=== PATIENT | female | born 1985 | race Caucasian/White ===

== ENCOUNTER 2021-06-14 08:47 | Emergency (ER) | payer SELFPAY ==
[2021-06-14 08:55] VITALS: BP 165/100
--- NOTE | 2021-06-14 09:02 | ED Headache ---
General Chief Complaint: Head/Cervical Problems Stated Complaint: HEADACHE; VOMITING Source: patient Exam Limitations: no limitations History of Present Illness Date Seen by Provider: Jun 14, 2021 Time Seen by Provider: 08:48 Initial Comments 35-year-old female with past medical history of chronic migraines coming in due to a new headache. Started last night around 8 PM, and was slow in onset. Feels like a throbbing pain to the left side of her head going across the front of it. Feels similar to her bad migraines that she gets. Denies any fever, neck stiffness, significant vision changes, or any other concerns. Began having nausea this morning associated with it which is not uncommon for her. Has not otherwise been sick or been around any sick contacts that she knows of. Did take Tylenol this morning early which took the edge off of it but is still present. She says the last time she had to go to the ER for a headache like this was over a year ago. Typically she gets migraines similar to this about monthly, but did have 1 a couple weeks ago. She is currently menstruating. Allergies and Home Medications Allergies Coded Allergies: lisinopril (Verified Allergy, Unknown, 06/14/21) cough Patient Home Medication List Home Medication List Reviewed: Yes Review of Systems Review of Systems Constitutional: No chills, No fever Eyes: Denies Blurred Vision; Photophobia Ears, Nose, Mouth, Throat: denies nose discharge, denies throat pain Respiratory: No cough, No short of breath Cardiovascular: No chest pain Gastrointestinal: No abdominal pain, No diarrhea; nausea; No vomiting Genitourinary: no symptoms reported Musculoskeletal: no symptoms reported Skin: no symptoms reported Psychiatric/Neurological: No Symptoms Reported All Other Systems Reviewed Negative Unless Noted: Yes Physical Exam Vital Signs Vital Signs - First Documented 06/14/21 08:55 Temp 36.4 Pulse 100 Resp 16 B/P (MAP) 165/100 (121) Pulse Ox 97 O2 Delivery Room Air Capillary Refill : Height, Weight, BMI Height: '" Weight: lbs. oz. kg; BMI Method: General Appearance: WD/WN, no apparent distress HEENT: PERRL/EOMI, normal ENT inspection, pharynx normal Neck: non-tender, full range of motion, supple, normal inspection Cardiovascular: regular rate, rhythm, no edema, no murmur Respiratory: chest non-tender, lungs clear, normal breath sounds, no respiratory distress, no accessory muscle use Gastrointestinal: normal bowel sounds, non tender, soft; No distended, No guarding, No rebound Back: normal inspection, no CVA tenderness, no vertebral tenderness Extremities: normal range of motion, non-tender, normal inspection, no pedal edema, no calf tenderness, normal capillary refill Psychiatric: alert, oriented x 3 Crainal Nerves: normal hearing, PERRL Coordination/Gait: normal finger to nose, normal gait Motor/Sensory: no motor deficit, no sensory deficit, no pronator drift Skin: normal color, warm/dry Lymphatic: no adenopathy Progress/Results/Core Measures Results/Orders My Orders Orders - LATOSHA JORDAN MD Prochlorperazine Injection (Compazine In (06/14/21 09:15) Diphenhydramine Injection (Benadryl Inje (06/14/21 09:15) Ketorolac Injection (Toradol Injection) (06/14/21 09:15) Vital Signs/I&O 06/14/21 08:55 Temp 36.4 Pulse 100 Resp 16 B/P (MAP) 165/100 (121) Pulse Ox 97 O2 Delivery Room Air Progress Progress Note : Progress Note 35-year-old female with above history coming in due to headache and nausea. ABCs were intact and vitals were stable on presentation. Physical exam reassuring including normal neuro exam. This fits the pattern of her typical migraines, and she has no red flags for her headache including no fever or meningismus that would be concerning for meningitis. She received IM injections of Compazine, Benadryl, Toradol with 60% of resolution of her symptoms. Then trialed an IM injection of droperidol which also helped. At that time the patient was requesting being discharged as she is feeling better. I believe she was stable for discharge at that time, and was sent home with strict return precautions. Of note, she does not really have any other infectious symptoms, but I told her if she develops any she should get tested for Covid and influenza, but we withheld that at this time. Departure Impression Primary Impression: Headache Qualified Codes: R51.9 - Headache, unspecified Disposition: 01 HOME, SELF-CARE Condition: Stable Departure-Patient Inst. Decision time for Depature: 10:25 Referrals: ALY PENALOZA APRN (PCP) Primary Care Physician [facility] (Family) Primary Care Physician Patient Instructions: Headache, Adult (DC) Add. Discharge Instructions: You were seen in the emergency department for your bad headache. We did try some injections to help with headache and nausea. The best thing you can do is go home, drink plenty of fluids, and try to sleep this off. Around 3 PM you can take 600 mg of ibuprofen again in 1000 mg of Tylenol if your headache continues. Take your Zofran at home for nausea. If this becomes really persistent and you get headaches more often, I would have your primary care doctor refer you to a neurologist as there are medications they can give you to help lessen have any headache should get. If you develop any other infectious symptoms such as fever, cough, diarrhea, or anything like that, I would call your PCP to be tested for things like influenza and/or COVID. Work/School Note: Work Release Form Date Seen in the Emergency Department: Jun 14, 2021 Return to Work: Jun 15, 2021 Restrictions: No Restrictions LATOSHA JORDAN MD Jun 14, 2021 09:02
[2021-06-14] MEDS ORDERED: diphenhydrAMINE 50 MG/ML INJ (BENADRYL) IM ONE (09:15)
[2021-06-14] MEDS ORDERED: KETOROLAC 30 MG/ML VIAL IM ONE (09:15)
[2021-06-14] MEDS ORDERED: PROCHLORPERAZINE 10 MG/2ML INJ (COMPAZINE) IM ONE (09:15)
[2021-06-14] MEDS ORDERED: DROPERIDOL 5 MG/2 ML (INAPSINE) ED ONLY! IM ONE (10:30)
== END 2021-06-14 10:30 | disposition home or self-care (01) ==
LOC: ER FS 08:50
DX: R51.9 Headache, unspecified (principal)
CPT/HCPCS: 96372; 99284

== ENCOUNTER 2023-02-23 02:55 | Emergency (ER) | payer BC ==
[~2023-02-23 02:55] MED LIST: SUCR1TAB36 PO
[2023-02-23] MEDS ORDERED: PANTOPRAZOLE INJECTION 40 MG VIAL IV STA (03:04)
[2023-02-23] MEDS ORDERED: fentaNYL INJECTION 100 MCG/2 ML VIAL IVP STA (03:04)
[2023-02-23] MEDS ORDERED: KETOROLAC INJ 15 MG/ML VIAL IVP STA (03:04)
[2023-02-23] MEDS ORDERED: METOCLOPRAMIDE INJ 10 MG/2 ML IVP STA (03:04)
[2023-02-23] MEDS ORDERED: diphenhydrAMINE INJ 50 MG/ML VIAL IVP STA (03:04)
[2023-02-23] MEDS ORDERED: NS IV 1000 ML 1,000 ML IV STA (03:04)
[2023-02-23 03:17] LABS: BASOPHILS % (AUTO) 0 % (0-10); EOSINOPHILS # (AUTO) 0.1 10^3/uL (0.0-0.3); EOSINOPHILS % (AUTO) 1 % (0-10); HEMATOCRIT 41 % (35-52); HEMOGLOBIN 13.8 g/dL (11.5-16.0); LYMPHOCYTES % (AUTO) 18 % (12-44); MEAN CORPUSCULAR HEMOGLOBIN 28 pg (25-34); MEAN CORPUSCULAR HGB CONC 34 g/dL (32-36); MEAN CORPUSCULAR VOLUME 84 fL (80-99); MEAN PLATELET VOLUME 8.9 fL (9.0-12.2); MONOCYTES # (AUTO) 0.6 10^3/uL (0.0-1.0); MONOCYTES % (AUTO) 6 % (0-12); NEUTROPHILS # (AUTO) 8.5 10^3/uL (1.8-7.8); NEUTROPHILS % (AUTO) 75 % (42-75); PLATELET COUNT 416 10^3/uL (130-400); WHITE BLOOD COUNT 11.3 10^3/uL (4.3-11.0)
--- NOTE | 2023-02-23 03:18 | ED Abdominal Pain ---
General Chief Complaint: Abdominal/GI Problems Stated Complaint: ULCER|VOMITING|PAIN Nursing Triage Note: PT AMB TO FS 05 W C/O EPIGASTRIC PAIN AND N/V SX MIDNIGHT. PT REPORTS DIARRHEA YESTERDAY, A&OX4. Source of Information: Patient, Family, Old Records Exam Limitations: Other (pain) History of Present Illness Date Seen by Provider: Feb 23, 2023 Time Seen by Provider: 02:56 Initial Comments 37-year-old female presenting with complaints of epigastric pain going to her back. She states that this started at midnight tonight. She also has been having diarrhea. Pain started after she ate chicken Demian pizza, although she was supposed to be following a bland diet until she saw the surgeon. She denies any pain with urination. She has pain in the epigastric area radiating through to her back. She had initially thought that she was having problems with her gallbladder but when she was seen on the she was told that it was more likely an ulcer. She had called the clinic to get a referral to the surgeon for a scope but states they have not called her back. She has been taking Carafate 4 times a day but still was having pain. She had been vomiting this evening as well and taken Zofran at home but it had not helped.. Timing/Duration: 1-3 Hours Severity/Quality: Severe, Sharp Location: Epigastric Radiation: Back Activities at Onset: Sleeping Modifying Factors: Worsens With Eating, Worsens With Lying down, Worsens With Movement, Worsens With Palpation Associated Symptoms: Back Pain (Epigastric pain radiates to her back); No Chest Pain; Diaphoresis; No Fever/Chills, No Fatigue, No Headache; Heartburn, Nausea/Vomiting; No Swelling/Mass in Abdomen, No Syncope, No Weakness Allergies and Home Medications Allergies Coded Allergies: lisinopril (Verified Allergy, Unknown, 06/14/21) cough Patient Home Medication List Home Medication List Reviewed: Yes Hydrocodone/Acetaminophen (Hydrocodone-Acetamin 5-325 mg) 5 Mg-325 Mg Tablet, 1 TAB PO Q4H PRN for PAIN SEVERE Prescribed by: DONNA PAREDES on 02/23/23 0551 Ondansetron (Ondansetron Odt) 4 Mg Tab.rapdis, 4 MG PO Q6H PRN for NAUSEA/VOMITING Prescribed by: DONNA PAREDES on 02/23/23 0549 Sucralfate (Carafate) 1 Gram Tablet, 1 GM PO ACHS Prescribed by: ROBERTO CARLOS MALDONADO MD on 02/18/236 Review of Systems Review of Systems Constitutional: No chills, No fever; other (Patient appears anxious and is constantly moaning and crying out dramatically at times) EENTM: No Symptoms Reported Respiratory: No Symptoms Reported Cardiovascular: Denies Chest Pain Gastrointestinal: See HPI Genitourinary: No Symptoms Reported Musculoskeletal: see HPI Skin: No rash Psychiatric/Neurological: Anxiety, Emotional Problems Past Otwdnze-Tqbimi-Jbcptj Hx Patient Social History Tobacco Use?: Yes Tobacco type used: Cigarettes Smoking Status: Current Everyday Smoker Use of E-Cig and/or Vaping dev: No Substance use?: No Alcohol Use?: No Immunizations Up To Date First/Initial COVID19 Vaccinat: Not currenlty vaccinated Second COVID19 Vaccination [place]: Not currenlty vaccinated Third COVID19 Vaccination Date: Not currenlty vaccinated Past Medical History Surgery/Hospitalization HX: HTN; ; Migraines, ULCER Surgeries: Yes Section Cardiac: Yes Hypertension Physical Exam Vital Signs Vital Signs - First Documented 02/23/23 02:55 Temp 36.9 Pulse 85 Resp 22 B/P (MAP) 107/ Pulse Ox 95 O2 Delivery Room Air O2 Flow Rate 195.00 Capillary Refill : Less Than 3 Seconds Height/Weight/BMI Height: '" Weight: lbs. oz. kg; 42.00 BMI Method: General Appearance: severe distress (constantly moaning and crying out dramatically at times), obese Respiratory: chest non-tender, lungs clear, normal breath sounds, no respiratory distress, no accessory muscle use Cardiovascular: normal peripheral pulses, regular rate, rhythm Gastrointestinal: normal bowel sounds, soft, no pulsatile mass, guarding; No rebound; tenderness (epigastric) Rectal: deferred Extremities: normal range of motion, non-tender, normal capillary refill Neurologic/Psychiatric: alert, oriented x 3 Skin: normal color, warm/dry Progress/Results/Core Measures Results/Orders Lab Results Laboratory Tests Test 02/23/23 03:05 02/23/23 04:45 Range/Units White Blood Count 11.3 H 4.3-11.0 10^3/uL Red Blood Count 4.91 3.80-5.11 10^6/uL Hemoglobin 13.8 11.5-16.0 g/dL Hematocrit 41 35-52 % Mean Corpuscular Volume 84 80-99 fL Mean Corpuscular Hemoglobin 28 25-34 pg Mean Corpuscular Hemoglobin Concent 34 32-36 g/dL Red Cell Distribution Width 12.9 10.0-14.5 % Platelet Count 416 H 130-400 10^3/uL Mean Platelet Volume 8.9 L 9.0-12.2 fL Immature Granulocyte % (Auto) 1 % Neutrophils (%) (Auto) 75 42-75 % Lymphocytes (%) (Auto) 18 12-44 % Monocytes (%) (Auto) 6 0-12 % Eosinophils (%) (Auto) 1 0-10 % Basophils (%) (Auto) 0 0-10 % Neutrophils # (Auto) 8.5 H 1.8-7.8 10^3/uL Lymphocytes # (Auto) 2.0 1.0-4.0 10^3/uL Monocytes # (Auto) 0.6 0.0-1.0 10^3/uL Eosinophils # (Auto) 0.1 0.0-0.3 10^3/uL Basophils # (Auto) 0.0 0.0-0.1 10^3/uL Immature Granulocyte # (Auto) 0.1 0.0-0.1 10^3/uL Percent Immature Platelet Fraction 1.2 0.0-7.6 % Prothrombin Time 12.5 12.2-14.7 SEC INR Comment 0.9 0.8-1.4 Activated Partial Thromboplast Time 32 24-35 SEC Sodium Level 138 135-145 MMOL/L Potassium Level 3.4 L 3.6-5.0 MMOL/L Chloride Level 100 98-107 MMOL/L Carbon Dioxide Level 23 21-32 MMOL/L Anion Gap 15 H 5-14 MMOL/L Blood Urea Nitrogen 13 7-18 MG/DL Creatinine 0.67 0.60-1.30 MG/DL Estimat Glomerular Filtration Rate 115 BUN/Creatinine Ratio 19 Glucose Level 171 H 70-105 MG/DL Calcium Level 9.2 8.5-10.1 MG/DL Corrected Calcium 8.8 8.5-10.1 MG/DL Magnesium Level 2.1 1.6-2.4 MG/DL Total Bilirubin 0.3 0.1-1.0 MG/DL Aspartate Amino Transf (AST/SGOT) 13 5-34 U/L Alanine Aminotransferase (ALT/SGPT) 16 0-55 U/L Alkaline Phosphatase 150 H 40-136 U/L Troponin I < 0.30 <0.30 NG/ML Pro-B-Type Natriuretic Peptide 49.6 <125.0 PG/ML Total Protein 8.2 6.4-8.2 GM/DL Albumin 4.5 3.2-4.5 GM/DL Lipase 25 8-78 U/L Serum Alcohol < 10 <10 MG/DL Urine Color YELLOW Urine Clarity CLEAR Urine pH 7.0 5-9 Urine Specific Barry 1.010 L 1.016-1.022 Urine Protein NEGATIVE NEGATIVE Urine Glucose (UA) TRACE H NEGATIVE Urine Ketones NEGATIVE NEGATIVE Urine Nitrite NEGATIVE NEGATIVE Urine Bilirubin NEGATIVE NEGATIVE Urine Urobilinogen 0.2 < = 1.0 MG/DL Urine Leukocyte Esterase NEGATIVE NEGATIVE Urine RBC (Auto) TRACE-I H NEGATIVE Urine RBC 0-2 /HPF Urine WBC RARE /HPF Urine Squamous Epithelial Cells RARE /HPF Urine Crystals NONE /LPF Urine Bacteria NEGATIVE /HPF Urine Casts NONE /LPF Urine Mucus NEGATIVE /LPF Urine Culture Indicated NO Urine Opiates Screen POSITIVE H NEGATIVE Urine Oxycodone Screen NEGATIVE NEGATIVE Urine Methadone Screen NEGATIVE NEGATIVE Urine Propoxyphene Screen NEGATIVE NEGATIVE Urine Barbiturates Screen NEGATIVE NEGATIVE Ur Tricyclic Antidepressants Screen NEGATIVE NEGATIVE Urine Phencyclidine Screen NEGATIVE NEGATIVE Urine Amphetamines Screen NEGATIVE NEGATIVE Urine Methamphetamines Screen NEGATIVE NEGATIVE Urine Benzodiazepines Screen NEGATIVE NEGATIVE Urine Cocaine Screen NEGATIVE NEGATIVE Urine Cannabinoids Screen NEGATIVE NEGATIVE My Orders Orders - DONNA PAREDES MD Ekg Tracing (02/23/23 03:00) Cbc And Automated Diff (02/23/23 03:04) Magnesium (02/23/23 03:04) Chest 1 View Ap/Pa Only (02/23/23 03:04) Comprehensive Metabolic Panel (02/23/23 03:04) Protime With Inr (02/23/23 03:04) Partial Thromboplastin Time (02/23/23 03:04) O2 (02/23/23 03:04) Monitor-Rhythm Ecg Trace Only (02/23/23 03:04) Ed Iv/Invasive Line Start (02/23/23 03:04) Lipase (02/23/23 03:04) Troponin I Fs (02/23/23 03:04) Probnp Fs (02/23/23 03:04) Ua Culture If Indicated (02/23/23 03:04) Ct Abdomen/Pelvis W (02/23/23 03:04) Ns Iv 1000 Ml (Ns Iv 1000 Ml) (02/23/23 03:04) Ketorolac Injection (Ketorolac Injection (02/23/23 03:04) Fentanyl Injection (Fentanyl Injection (02/23/23 03:04) Pantoprazole Injection (Pantoprazole Inj (02/23/23 03:04) Metoclopramide Injection (Metoclopramide (02/23/23 03:04) Diphenhydramine Injection (Diphenhydram (02/23/23 03:04) Drug Screen Stat (Urine) (02/23/23 03:04) Alcohol (02/23/23 03:04) Iohexol Injection (Omnipaque 350 Mg/Ml 1 (02/23/23 03:30) Received Contrast (Hold Metformin- Contr (02/23/23 03:30) Ns (Ivpb) 100 Ml (Sodium Chloride 0.9% 1 (02/23/23 03:30) Medications Given in ED Current Medications Medications Dose Ordered Sig/Matthew Route Start Time Stop Time Status Last Admin Dose Admin Iohexol 100 ml ONCE ONCE IV 02/23/23 03:30 02/23/23 03:31 DC 02/23/23 03:37 100 ML Sodium Chloride 100 ml ONCE ONCE IV 02/23/23 03:30 02/23/23 03:31 DC 02/23/23 03:37 100 ML Vital Signs/I&O 02/23/23 02:55 Temp 36.9 Pulse 85 Resp 22 B/P (MAP) 107/ Pulse Ox 95 O2 Delivery Room Air O2 Flow Rate 195.00 Progress Progress Note #1: Progress Note Differential diagnosis peptic ulcer disease, pancreatitis, cholecystitis, gastritis, diverticulitis, colitis, myocardial infarction, acute coronary syndrome. Establish peripheral IV access and send labs for complete blood count, comprehensive metabolic profile, lipase, ETOH, troponin, proBNP, coagulation factors, magnesium, UA, Urine drug screen. She had negative bedside test on 02/18/2023 so this was not repeated tonight. Electrocardiogram to evaluate her rate, rhythm and look for ischemia. Cardiac media monitor and my initial interpretation is that she is in a sinus rhythm with rate in the 70s. CT scan of abdomen/pelvis with IV contrast to evaluate for pathology to be causing her symptoms. 1 view chest xray with her having epigastric pain and hypertension. Administer normal saline 1 L IVF bolus for hydration, Toradol 15 mg IV for pain, Fentanyl 50 mcg IV for pain, Pantoprazole 40 mg IV for gastritis, metoclopramide 10 mg IV for nausea/vomiting, diphenhydramine 25 mg IV for nausea and anxiety. If her blood pressure is not coming down with these medicines then will add on hydralazine to try and help lower her blood pressure as well. Progress Note #2: Time: 03:54 Progress Note Complete blood count shows white blood cells at upper limit of normal at 11.3. Comprehensive metabolic profile shows elevated glucose to 171. Troponin is negative at less than 0.3. She does not have an elevated proBNP. Her lipase is normal at 25. Her liver function tests are not elevated to indicate obstruction or blockage. Alcohol level is less than 10. Coagulation factors are not showing coagulopathy or elevation. Mild personal interpretation I reviewed the CT scan of the abdomen pelvis with IV contrast shows large distended gallbladder with gallbladder wall thickening and a large gallstone sitting at the biliary duct but not causing obstruction. There is no pericholecystic fluid. After all medications patient was resting in the room and was at least no longer moaning a nd crying out. Her blood pressure did come down some with medications for pain. My personal interpretation and review of her 1 view chest x-ray shows some cardiomegaly and pulmonary vascular congestion without infiltrate. 0530 Patient was able to rest comfortably and reports pain is down to 1 out of 10 if that. She was advised of current findings and that I saw a large gallstone in the gallbladder with gallbladder wall thickening but no infection or obstruction. Awaiting radiology report. She was able to provide a urine specimen and it did not show infection and she had only opiates in her drug screen from the Fentanyl she was given here in the ED. Progress Note #3: Time: 06:45 Progress Note The radiologist read the CT report as showing gallbladder wall thickening and stone but no obstruction and no pericholecystic fluid. Patient updated and counseled on follow up and return precautions. Have her call surgeon today to schedule follow up and likely have gallbladder removed. Counseled on return precautions if having worsening symptoms. Script for Hydrocodone and Ondansetron to pharmacy. Initial ECG Impression Date: Feb 23, 2023 Initial ECG Impression Time: 03:07 Initial ECG Rate: 73 Initial ECG Rhythm: Normal Sinus Initial ECG Comparisson: Unchanged (02/18/2023) Comment Based on my initial interpretation and review her electrocardiogram shows a sinus rhythm with a heart rate of 73 bpm. [place] interval 169 milliseconds. Incomplete right bundle branch block. No acute ST elevation. QT interval 393 ms with a QTc interval 419 ms. Possible septal myocardial infarction of an undetermined age. Overall appears similar to the tracing from February 18, 2023. Diagnostic Imaging Diagonstic Imaging: CT Plain Films/CT/US/NM/MRI: abdomen, pelvis Comments NAME: JAIDEN SR [facility] REC#: [id number] PT STATUS: REG ER : 1985 PHYSICIAN: DONNA PAREDES MD ADMIT DATE: 02/23/23/ER FS Draft Date of Exam:02/23/23 CT ABDOMEN/PELVIS W PROCEDURE: CT abdomen and pelvis with contrast. TECHNIQUE: Multiple contiguous axial images were obtained through the abdomen and pelvis after administration of intravenous contrast. Auto Exposure Controls were utilized during the CT exam to meet ALARA standards for radiation dose reduction. All CT scans use one or more of the following dose optimizing techniques: automated exposure control, MA and/or KvP adjustment based on patient size and exam type or iterative reconstruction. INDICATION: Epigastric pain, nausea, vomiting, diarrhea FINDINGS: The gallbladder is distended measuring about 12 cm long with 4 cm width, its wall appears thickened and there is a calculus within the gallbladder at the level of the neck, that stone measuring 19 mm and the appearance is suspicious for acute cholecystitis, correlate clinically. There is, however, no bile duct dilatation and no radiodense choledocholithiasis. Unobstructed kidneys normal. Right adrenal nodule measures 1.8 x 1.2 cm, the left adrenal negative. Spleen and pancreas normal. The aorta is nonaneurysmal. There is no small or large bowel obstruction. There is a normal well visualized appendix. There is infraumbilical rectus diastases. No acute-appearing abdominal wall pathology. The uterus, adnexa and urinary bladder appeared normal. No ascites. IMPRESSION: 1. Thickened, stone containing, mildly distended gallbladder is suspicious for cholecystitis without radiodense choledocholithiasis or bile duct dilatation. 2. No other acute-appearing abnormality found. Dictated on workstation # [id number] Dict: 02/23/2338 Trans: 02/23/2344 CVB [id number] Interpreted by: DARLENE ALEJANDRA Electronically signed by: Reviewed: Reviewed by Me Diagonstic Imaging: Xray Plain Films/CT/US/NM/MRI: chest Comments [facility] [place] [place] NAME: JAIDEN SR [facility] REC#: [id number] PT STATUS: REG ER : 1985 PHYSICIAN: DONNA PAREDES MD ADMIT DATE: 02/23/23/ER FS Draft Date of Exam:02/23/23 CHEST 1 VIEW AP/PA ONLY INDICATION: Shortness of breath and epigastric pain. No priors. FINDINGS: Upright frontal chest is clear. No infiltrate, effusion, pneumothorax or edema. No free air beneath the diaphragms. IMPRESSION: No acute appearing abnormality. Dictated on workstation # [id number] Dict: 02/23/2333 Trans: 02/23/2347 HOA [id number] Interpreted by: DARLENE ALEJANDRA Electronically signed by: Reviewed: Reviewed by Me Departure Impression Primary Impression: Epigastric abdominal pain Additional Impressions: Nausea vomiting and diarrhea Hypertension, uncontrolled Cholelithiasis Qualified Codes: K80.70 - Calculus of gallbladder and bile duct without cholecystitis without obstruction Gallbladder attack Disposition: 01 HOME, SELF-CARE Condition: Improved Departure-Patient Inst. Decision time for Depature: 06:40 Referrals: JUDY HUNTER APRN (PCP) Primary Care Physician [facility] (Family) Primary Care Physician MARY HOLDEN TAKAAKI MD Patient Instructions: Gallstones ED, High Blood Pressure ED, Nausea and Vomiting, Adult ED, Gallbladder Diet, Ulcer and Gastritis Diet Add. Discharge Instructions: Follow a strict low-fat bland diet to help prevent further gallbladder attacks. Follow-up with the surgeon to discuss treatment options for your gallbladder and the gallstones. If you have recurrent pain that is severe you can take the hydrocodone with acetaminophen. This is a narcotic so can cause constipation as well as nausea. Try to take it with a little bit of food. You have the dissolving Zofran tablets to help keep the nausea under control. If you have worsening pain despite the medications, fever over 101, uncontrolled nausea and vomiting despite the medicine then you need to be seen again right away. Otherwise following up with the surgeon so they can discuss possible removal of your gallbladder. All discharge instructions reviewed with patient and/or family. Voiced understanding. Scripts Ondansetron (Ondansetron Odt) 4 Mg Tab.rapdis 4 MG PO Q6H PRN for NAUSEA/VOMITING for 5 Days, #20 TAB 0 Refills Prov: DONNA PAREDES MD 02/23/23 Hydrocodone/Acetaminophen (Hydrocodone-Acetamin 5-325 mg) 5 Mg-325 Mg Tablet 1 TAB PO Q4H PRN for PAIN SEVERE for 3 Days, #18 TAB 0 Refills Prov: DONNA PAREDES MD 02/23/23 DONNA PAREDES MD Feb 23, 2023 03:18
[2023-02-23] MEDS ORDERED: IOHEXOL 350 MG/ML 100 ML (OMNIPAQUE 350) VIAL IV ONE (03:30)
[2023-02-23] MEDS ORDERED: NS 100 ML (IVPB) BAG IV ONE (03:30)
[2023-02-23] MEDS ORDERED: HOLD METFORMIN - RECEIVED CONTRAST 20 ML VIAL IV SCH (03:30)
[2023-02-23 03:37] LABS: INR 0.9 (0.8-1.4); PROTHROMBIN TIME PATIENT 12.5 SEC (12.2-14.7)
[2023-02-23 03:52] LABS: ALANINE AMINOTRANSFERASE 16 U/L (0-55); ALKALINE PHOSPHATASE 150 U/L (40-136); BILIRUBIN,TOTAL 0.3 MG/DL (0.1-1.0); BUN/CREATININE RATIO 19; CALCIUM 9.2 MG/DL (8.5-10.1); CARBON DIOXIDE 23 MMOL/L (21-32); CHLORIDE 100 MMOL/L (98-107); CREATININE SERUM 0.67 MG/DL (0.60-1.30); GFR ESTIMATED 115; GLUCOSE 171 MG/DL (70-105); MAGNESIUM 2.1 MG/DL (1.6-2.4); POTASSIUM 3.4 MMOL/L (3.6-5.0); SODIUM 138 MMOL/L (135-145)
[2023-02-23 03:53] LABS: ALBUMIN 4.5 GM/DL (3.2-4.5); LIPASE 25 U/L (8-78); TOTAL PROTEIN 8.2 GM/DL (6.4-8.2)
[2023-02-23 04:52] LABS: BILIRUBIN,URINE NEGATIVE (NEGATIVE); CLARITY,URINE CLEAR; COLOR,URINE YELLOW; GLUCOSE, URINE (UA) TRACE (NEGATIVE); KETONES,URINE NEGATIVE (NEGATIVE); LEUKOCYTE ESTERASE ,URINE NEGATIVE (NEGATIVE); NITRITE,URINE NEGATIVE (NEGATIVE); PROTEIN,URINE NEGATIVE (NEGATIVE)
[2023-02-23 05:05] LABS: BACTERIA,URINE NEGATIVE /HPF; RBC,URINE 0-2 /HPF; WBC,URINE RARE /HPF
[2023-02-23 05:06] LABS: SQUAMOUS EPITHELIAL CELL,UR RARE /HPF
[2023-02-23 05:07] LABS: AMPHETAMINE SCREEN, URINE NEGATIVE (NEGATIVE); BARBITURATE SCREEN URINE NEGATIVE (NEGATIVE); CANNABINOID SCREEN, URINE NEGATIVE (NEGATIVE); COCAINE SCREEN URINE NEGATIVE (NEGATIVE); METHADONE STAT NEGATIVE (NEGATIVE); OPIATE SCREEN URINE POSITIVE (NEGATIVE); OXYCODONE STAT NEGATIVE (NEGATIVE); PROPOXYPHENE STAT NEGATIVE (NEGATIVE); TRICYCLIC ANTIDEPRESSANTS SCRE NEGATIVE (NEGATIVE)
--- NOTE | 2023-02-23 05:48 | Diagnostic Imaging Report ---
INDICATION: Shortness of breath and epigastric pain. No priors. FINDINGS: Upright frontal chest is clear. No infiltrate, effusion, pneumothorax or edema. No free air beneath the diaphragms. IMPRESSION: No acute appearing abnormality. Dictated by: Dictated on workstation # [id number]
[2023-02-23] MEDS ORDERED: ACHD5005 PO ×2 (05:49→16:30)
[2023-02-23] MEDS ORDERED: ONDA4TAB11 PO (05:49)
--- NOTE | 2023-02-23 06:45 | Diagnostic Imaging Report ---
PROCEDURE: CT abdomen and pelvis with contrast. TECHNIQUE: Multiple contiguous axial images were obtained through the abdomen and pelvis after administration of intravenous contrast. Auto Exposure Controls were utilized during the CT exam to meet ALARA standards for radiation dose reduction. All CT scans use one or more of the following dose optimizing techniques: automated exposure control, MA and/or KvP adjustment based on patient size and exam type or iterative reconstruction. INDICATION: Epigastric pain, nausea, vomiting, diarrhea FINDINGS: The gallbladder is distended measuring about 12 cm long with 4 cm width, its wall appears thickened and there is a calculus within the gallbladder at the level of the neck, that stone measuring 19 mm and the appearance is suspicious for acute cholecystitis, correlate clinically. There is, however, no bile duct dilatation and no radiodense choledocholithiasis. Unobstructed kidneys normal. Right adrenal nodule measures 1.8 x 1.2 cm, the left adrenal negative. Spleen and pancreas normal. The aorta is nonaneurysmal. There is no small or large bowel obstruction. There is a normal well visualized appendix. There is infraumbilical rectus diastases. No acute-appearing abdominal wall pathology. The uterus, adnexa and urinary bladder appeared normal. No ascites. IMPRESSION: 1. Thickened, stone containing, mildly distended gallbladder is suspicious for cholecystitis without radiodense choledocholithiasis or bile duct dilatation. 2. No other acute-appearing abnormality found. Dictated by: Dictated on workstation # [id number]
[2023-02-23 06:46] VITALS: BP 166/96
[2023-02-23] MEDS ORDERED: METO200T48 PO (14:05)
[2023-02-23] MEDS ORDERED: SERT-412 PO (14:05)
[2023-02-23] MEDS ORDERED: CLN.1T PO (14:05)
== END 2023-02-23 06:46 | disposition home or self-care (01) ==
LOC: EDUNIT# 02:55 → ER FS 02:56
DX: K80.20 Calculus of gallbladder without cholecystitis without obstruction (principal); K82.9 Disease of gallbladder, unspecified; I10 Essential (primary) hypertension; E66.9 Obesity, unspecified; F17.210 Nicotine dependence, cigarettes, uncomplicated; Z68.41 Body mass index [BMI] 40.0-44.9, adult; Z28.310 Unvaccinated for COVID-19
CPT/HCPCS: 36415; 71045; 74177; 80053; 80306; 81000; 83690; 83735; 83880; 84484; 85025; 85610; 85730; 93005; 93041; 99284; G0480; 80320; Q9967

== ENCOUNTER 2023-02-23 10:13 | Emergency (ER) | payer BC ==
[~2023-02-23 10:13] MED LIST changes: +ACHD5005 PO; +ONDA4TAB11 PO
[2023-02-23] MEDS ORDERED: CLN.1T PO (14:05)
[2023-02-23] MEDS ORDERED: METO200T48 PO (14:05)
[2023-02-23] MEDS ORDERED: SERT-412 PO (14:05)
[2023-02-23] MEDS ORDERED: ACHD5005 PO (16:30)
== END 2023-02-23 10:31 | disposition left against medical advice (07) ==
LOC: EDUNIT# 10:13 → ER FS 10:16
DX: R11.10 Vomiting, unspecified (principal)

== ENCOUNTER 2023-02-23 11:02 | Day surgery (SDC) | payer BC ==
[2023-02-23] VITALS (9 sets, daily range): BP systolic 110–207; BP diastolic 72–128
[~2023-02-23] VITALS: Ht 157.5 cm; Wt 104.3 kg
[2023-02-23] MEDS ORDERED: NS IV 1000 ML 1,000 ML IV STA ×2 (11:14→12:42)
[2023-02-23] MEDS ORDERED: fentaNYL INJECTION 100 MCG/2 ML VIAL IVP ONE ×2 (11:15→14:15)
--- NOTE | 2023-02-23 11:20 | ED Abdominal Pain ---
General Stated Complaint: GALL BLADDER Source of Information: Patient Exam Limitations: No Limitations History of Present Illness Date Seen by Provider: Feb 23, 2023 Time Seen by Provider: 11:15 Initial Comments Patient is a 37-year-old female presents ED with epigastric abdominal pain. Pain is described as sharp radiates to her back. Rates pain 10 out of 10. Pain started this past Monday and she was seen in the ER. There was concern for gallbladder disease versus ulcer versus GERD. She increase her omeprazole and has been taking Carafate. She was seen at [facility] for similar type pain today because the pain has increased. Pain worse with eating. She has been vomiting since last night. She denies of any chest pain or shortness of breath. She states the pain is not getting any better with oral hydrocodone. It was recommended come to ED by her primary care physician for further evaluation. Patient did have a positive result on her CT abdomen pelvis with thickening of the gallbladder but did not note any pericholecystic fluid. Stone was noted. No evidence of choledocholithiasis. She had reassuring lab work. Patient denies chest pain, shortness of breath, headache, dizziness, visual changes, vom iting, diarrhea. Allergies and Home Medications Allergies Coded Allergies: lisinopril (Verified Allergy, Unknown, 06/14/21) cough Patient Home Medication List Home Medication List Reviewed: Yes Hydrocodone/Acetaminophen (Hydrocodone-Acetamin 5-325 mg) 5 Mg-325 Mg Tablet, 1 TAB PO Q4H PRN for PAIN SEVERE Prescribed by: DONNA PAREDES on 02/23/23 0551 Ondansetron (Ondansetron Odt) 4 Mg Tab.rapdis, 4 MG PO Q6H PRN for NAUSEA/VOMITING Prescribed by: DONNA PAREDES on 02/23/23 0549 Sucralfate (Carafate) 1 Gram Tablet, 1 GM PO ACHS Prescribed by: ROBERTO CARLOS MALDONADO MD on 02/18/232224 Review of Systems Review of Systems Constitutional: No chills, No diaphoresis EENTM: No Double Vision, No Eye Pain Respiratory: Denies Cough, Denies Orthopnea Cardiovascular: Denies Chest Pain Gastrointestinal: Abdominal Pain; Denies Diarrhea; Nausea, Vomiting Genitourinary: Denies Burning, Denies Discharge Musculoskeletal: No back pain, No joint pain Skin: No change in color, No change in hair/nails Psychiatric/Neurological: Denies Anxiety, Denies Depressed All Other Systems Reviewed Negative Unless Noted: Yes Past Elvmmtq-Jmcacs-Nxisal Hx Immunizations Up To Date First/Initial COVID19 Vaccinat: Not currenlty vaccinated Second COVID19 Vaccination [place]: Not currenlty vaccinated Third COVID19 Vaccination Date: Not currenlty vaccinated Past Medical History Surgery/Hospitalization HX: HTN; ; Migraines, ULCER Surgeries: Yes Section Cardiac: Yes Hypertension Physical Exam Vital Signs Vital Signs - First Documented 02/23/23 11:12 Temp 36.5 Pulse 90 Resp 19 B/P (MAP) 208/145 (166) O2 Delivery Room Air Capillary Refill : Height/Weight/BMI Height: '" Weight: lbs. oz. kg; 42.00 BMI Method: General Appearance: WD/WN, no apparent distress HEENT: PERRL/EOMI, normal ENT inspection, TMs normal, pharynx normal Neck: non-tender, full range of motion, supple Respiratory: chest non-tender, lungs clear, normal breath sounds, no respiratory distress, no accessory muscle use Cardiovascular: regular rate, rhythm, no edema, no gallop Gastrointestinal: normal bowel sounds, soft, no organomegaly, tenderness (epiGastric tenderness, right upper quadrant tenderness) Extremities: normal range of motion, non-tender, normal inspection, no calf tenderness Back: normal inspection, no CVA tenderness 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, no motor/sensory deficits, alert, normal mood/affect, oriented x 3 Progress/Results/Core Measures Results/Orders Lab Results Laboratory Tests Test 02/23/23 11:26 Range/Units White Blood Count 14.8 H 4.3-11.0 10^3/uL Red Blood Count 5.30 H 3.80-5.11 10^6/uL Hemoglobin 14.9 11.5-16.0 g/dL Hematocrit 44 35-52 % Mean Corpuscular Volume 84 80-99 fL Mean Corpuscular Hemoglobin 28 25-34 pg Mean Corpuscular Hemoglobin Concent 34 32-36 g/dL Red Cell Distribution Width 12.9 10.0-14.5 % Platelet Count 409 H 130-400 10^3/uL Mean Platelet Volume 8.9 L 9.0-12.2 fL Immature Granulocyte % (Auto) 1 % Neutrophils (%) (Auto) 85 H 42-75 % Lymphocytes (%) (Auto) 10 L 12-44 % Monocytes (%) (Auto) 5 0-12 % Eosinophils (%) (Auto) 0 0-10 % Basophils (%) (Auto) 0 0-10 % Neutrophils # (Auto) 12.5 H 1.8-7.8 10^3/uL Lymphocytes # (Auto) 1.5 1.0-4.0 10^3/uL Monocytes # (Auto) 0.7 0.0-1.0 10^3/uL Eosinophils # (Auto) 0.0 0.0-0.3 10^3/uL Basophils # (Auto) 0.0 0.0-0.1 10^3/uL Immature Granulocyte # (Auto) 0.1 0.0-0.1 10^3/uL Neutrophils % (Manual) 0 % Lymphocytes % (Manual) 11 % Monocytes % (Manual) 10 % Eosinophils % (Manual) 0 % Basophils % (Manual) 0 % Band Neutrophils 79 % Blood Morphology Comment NORMAL Sodium Level 137 135-145 MMOL/L Potassium Level 3.5 L 3.6-5.0 MMOL/L Chloride Level 102 98-107 MMOL/L Carbon Dioxide Level 21 21-32 MMOL/L Anion Gap 14 5-14 MMOL/L Blood Urea Nitrogen 8 7-18 MG/DL Creatinine 0.72 0.60-1.30 MG/DL Estimat Glomerular Filtration Rate 110 BUN/Creatinine Ratio 11 Glucose Level 142 H 70-105 MG/DL Calcium Level 9.3 8.5-10.1 MG/DL Corrected Calcium 8.5-10.1 MG/DL Total Bilirubin 0.5 0.1-1.0 MG/DL Aspartate Amino Transf (AST/SGOT) 17 5-34 U/L Alanine Aminotransferase (ALT/SGPT) 22 0-55 U/L Alkaline Phosphatase 146 H 40-136 U/L Total Protein 8.6 H 6.4-8.2 GM/DL Albumin 4.7 H 3.2-4.5 GM/DL Lipase 9 8-78 U/L Serum Test, Qualitative NEGATIVE NEGATIVE My Orders Orders - LATOSHA MOSS Cbc And Automated Diff (02/23/23 11:06) Comprehensive Metabolic Panel (02/23/23 11:06) Lipase (02/23/23 11:06) Iv/Invasive Line Insertion .IV INSERT (02/23/23 11:06) Hcg,Qualitative Serum (02/23/23 11:06) Fentanyl Injection (Fentanyl Injection (02/23/23 11:15) Ns Iv 1000 Ml (Ns Iv 1000 Ml) (02/23/23 11:14) Manual Differential (02/23/23 11:26) Morphine Injection (Morphine Injection (02/23/23 12:15) Hydralazine Injection (Hydralazine Injec (02/23/23 12:45) Ns Iv 1000 Ml (Ns Iv 1000 Ml) (02/23/23 12:42) Morphine Injection (Morphine Injection (02/23/23 12:45) Ns Iv 1000 Ml (Ns Iv 1000 Ml) (02/23/23 12:45) Medications Given in ED Current Medications Medications Dose Ordered Sig/Matthew Route Start Time Stop Time Status Last Admin Dose Admin Fentanyl Citrate 50 mcg ONCE ONCE IVP 02/23/23 11:15 02/23/23 11:16 DC 02/23/23 11:32 50 MCG Hydralazine HCl 10 mg ONCE ONCE IV 02/23/23 12:45 02/23/23 12:46 DC 02/23/23 12:47 10 MG Morphine Sulfate 4 mg ONCE ONCE IVP 02/23/23 12:15 02/23/23 12:16 DC 02/23/23 12:15 4 MG Morphine Sulfate 4 mg STK-MED ONCE .ROUTE 02/23/23 12:45 02/23/23 12:47 DC 02/23/23 12:48 4 MG Vital Signs/I&O 02/23/23 11:12 Temp 36.5 Pulse 90 Resp 19 B/P (MAP) 208/145 (166) O2 Delivery Room Air Departure Communication (PCP) Patient is a 37-year-old female presents ED with epigastric right upper quad abdominal pain since this Monday. Vomiting today. Was seen at [facility] earlier this morning had a CT abdomen pelvis that noted thickening stone containing mild distended gallbladder suspicious for cholecystitis without radiodense choledocholithiasis or bile duct dilation. No improvement with hydrocodone at home. Patient last ate was 7:00 last night. History of hypertension not been taking her blood pressure medication for the past week. Moderate distress. Received 50 mcg of fentanyl with some improvement. Pain did return received 8 mg of morphine. Started on 2 L of fluid. White blood count showed slight increase of 14. Normal bilirubin and liver enzymes. Patient is currently NPO. Consulted with Dr. Chambers general surgeon who will take patient to the OR. Patient agrees with this plan of action. Consents were signed Impression Primary Impression: Biliary colic Disposition: 30 STILL A PATIENT Condition: Stable Admissions Decision to Admit Reason: Admit from ER (Trauma) Decision to Admit/Date: Feb 23, 2023 Time/Decision to Admit Time: 12:02 Departure-Patient Inst. Referrals: JUDY HUNTER APRN (PCP/Family) Primary Care Physician LATOSHA MOSS Feb 23, 2023 11:20
[2023-02-23 11:33] LABS: BASOPHILS % (AUTO) 0 % (0-10); EOSINOPHILS % (AUTO) 0 % (0-10); HEMATOCRIT 44 % (35-52); HEMOGLOBIN 14.9 g/dL (11.5-16.0); LYMPHOCYTES # (AUTO) 1.5 10^3/uL (1.0-4.0); LYMPHOCYTES % (AUTO) 10 % (12-44); MEAN CORPUSCULAR HEMOGLOBIN 28 pg (25-34); MEAN CORPUSCULAR HGB CONC 34 g/dL (32-36); MEAN CORPUSCULAR VOLUME 84 fL (80-99); MEAN PLATELET VOLUME 8.9 fL (9.0-12.2); MONOCYTES # (AUTO) 0.7 10^3/uL (0.0-1.0); MONOCYTES % (AUTO) 5 % (0-12); NEUTROPHILS # (AUTO) 12.5 10^3/uL (1.8-7.8); NEUTROPHILS % (AUTO) 85 % (42-75); PLATELET COUNT 409 10^3/uL (130-400); WHITE BLOOD COUNT 14.8 10^3/uL (4.3-11.0)
[2023-02-23 11:46] LABS: ALBUMIN 4.7 GM/DL (3.2-4.5); CHLORIDE 102 MMOL/L (98-107); POTASSIUM 3.5 MMOL/L (3.6-5.0); SODIUM 137 MMOL/L (135-145)
[2023-02-23 11:47] LABS: CALCIUM 9.3 MG/DL (8.5-10.1)
[2023-02-23 11:48] LABS: GLUCOSE 142 MG/DL (70-105); TOTAL PROTEIN 8.6 GM/DL (6.4-8.2)
[2023-02-23 11:49] LABS: CARBON DIOXIDE 21 MMOL/L (21-32)
[2023-02-23 11:50] LABS: BILIRUBIN,TOTAL 0.5 MG/DL (0.1-1.0)
[2023-02-23 11:52] LABS: ALKALINE PHOSPHATASE 146 U/L (40-136); CREATININE SERUM 0.72 MG/DL (0.60-1.30); GFR ESTIMATED 110
[2023-02-23 11:53] LABS: BUN/CREATININE RATIO 11
[2023-02-23 11:54] LABS: BAND NEUTROPHILS 79 %; BASOPHILS % (MANUAL) 0 %; EOSINOPHILS % (MANUAL) 0 %; LYMPHOCYTES % (MANUAL) 11 %; MONOCYTES % (MANUAL) 10 %; NEUTROPHILS % (MANUAL) 0 %; RBC MORPH NORMAL
[2023-02-23 11:55] LABS: ALANINE AMINOTRANSFERASE 22 U/L (0-55); LIPASE 9 U/L (8-78)
[2023-02-23] MEDS ORDERED: morphine INJ 10 MG/ML 1ML (SYR OR VIAL) IVP ONE (12:15)
[2023-02-23] MEDS ORDERED: morphine INJ 4 MG/ML 1 ML (VIAL/SYRINGE) ONE (12:45)
[2023-02-23] MEDS ORDERED: NS IV 1000 ML 1,000 ML ONE (12:45)
[2023-02-23] MEDS ORDERED: hydrALAZINE INJECTION 20 MG/ML VIAL IV ONE (12:45)
--- NOTE | 2023-02-23 12:52 | Consultation - Surgery ---
RYLIE GOLDSTEIN 02/23/23 1252: History of Present Illness History of Present Illness Patient Consulted On(francine/time) 02/23/23 12:48 Date Seen by Provider: Feb 23, 2023 Time Seen by Provider: 12:40 Reason for Visit: Sever Epigastric Pain History of Present Illness Jennifer Ramsay is a 37 year old female with a PMH of HTN and GERD who presented to the ED with severe epigastric pain. Patient reported epigastric pain that started on Monday and has increased in severity untill today where the pain is rated 10/10, sharp and radiating to the back. She was seen 02/18 at [facility] where they increased her Omeprazol to 40mg and starting her on Carafate after attributing her pain to an ulcer. Patient was sent home where she continued to have pain. Patient mentioned the pain increased in severity after she ate pizza 2 days ago. Patient has not had food since yesterday morning. This morning, she presented to the ED in [place] where they performed a CXR and CT abdomen pelvis which showed a thickened, stone containing, mildly distended gallbladder. Nothing she has tried at home nor medication here at the hospital have helped her pain significantly. Allergies and Home Medications Allergies Coded Allergies: lisinopril (Verified Allergy, Unknown, 06/14/21) cough Patient Home Medication List Hydrocodone/Acetaminophen (Hydrocodone-Acetamin 5-325 mg) 5 Mg-325 Mg Tablet, 1 TAB PO Q4H PRN for PAIN SEVERE Prescribed by: DONNA PAREDES on 02/23/23 0551 Ondansetron (Ondansetron Odt) 4 Mg Tab.rapdis, 4 MG PO Q6H PRN for NAUSEA/VOMITING Prescribed by: DONNA PAREDES on 02/23/23 0549 Sucralfate (Carafate) 1 Gram Tablet, 1 GM PO ACHS Prescribed by: ROBERTO CARLOS MALDONADO MD on 02/18/232224 Past Xevvucs-Efrxdb-Shaoac Hx Patient Social History Smoking Status: Current Everyday Smoker Cigarettes Per Day: 10 Type Used: Cigarettes Alcohol Use?: Yes (one drink a year.) Surgeries History of Surgeries: Yes Surgeries: Section (2013 in [facility]) Cardiovascular History of Cardiac Disorders: Yes Cardiac Disorders: Hypertension Reproductive System : No Gastrointestinal History of Gastrointestinal Di: Yes Gastrointestinal Disorders: Gastroesophageal Reflux Family Medical History Significant Family History: Cancer (grandfather had lung cancer ), Diabetes (both mother and father ), Hypertension (both mother and father), Renal Disease (grandmother had renal failure) Review of Systems-General Constitutional: chills; No fever, No malaise EENTM: No hearing loss, No ear pain, No blurred vision, No double vision Respiratory: No cough; short of breath (due to pain with deep breathing) Cardiovascular: chest pain, palpitations Gastrointestinal: abdominal pain (in epigastric region ); No constipation; diarrhea; No dysphagia Psychiatric/Neurological: Denies Numbness, Denies Tingling Physical Exam-General Problems Physical Exam Vital Signs Vital Signs - First Documented 02/23/23 11:12 Temp 36.5 Pulse 90 Resp 19 B/P (MAP) 208/145 (166) O2 Delivery Room Air Capillary Refill : Less Than 3 Seconds General Appearance: severe distress, obese Respiratory: normal breath sounds, no respiratory distress Cardiovascular: regular rate, rhythm, no edema, no murmur Peripheral Pulses: 3+ Dorsalis Pedis (R), 3+ Left Dors-Pedis (L), 3+ Radial Pulses (R), 3+ Radial Pulses (L) Gastrointestinal: normal bowel sounds, guarding, tenderness (tenderness in RUQ) Extremities: no pedal edema Skin: normal color, warm/dry Data Review Labs Laboratory Tests 02/23/23 11:26: White Blood Count 14.8H, Red Blood Count 5.30H, Hemoglobin 14.9, Hematocrit 44, Mean Corpuscular Volume 84, Mean Corpuscular Hemoglobin 28, Mean Corpuscular Hemoglobin Concent 34, Red Cell Distribution Width 12.9, Platelet Count 409H, Mean Platelet Volume 8.9L, Immature Granulocyte % (Auto) 1, Neutrophils (%) (Auto) 85H, Lymphocytes (%) (Auto) 10L, Monocytes (%) (Auto) 5, Eosinophils (%) (Auto) 0, Basophils (%) (Auto) 0, Neutrophils # (Auto) 12.5H, Lymphocytes # (Auto) 1.5, Monocytes # (Auto) 0.7, Eosinophils # (Auto) 0.0, Basophils # (Auto) 0.0, Immature Granulocyte # (Auto) 0.1, Neutrophils % (Manual) 0, Lymphocytes % (Manual) 11, Monocytes % (Manual) 10, Eosinophils % (Manual) 0, Basophils % (Manual) 0, Band Neutrophils 79, Blood Morphology Comment NORMAL, Sodium Level 137, Potassium Level 3.5L, Chloride Level 102, Carbon Dioxide Level 21, Anion Gap 14, Blood Urea Nitrogen 8, Creatinine 0.72, Estimat Glomerular Filtration Rate 110, BUN/Creatinine Ratio 11, Glucose Level 142H, Calcium Level 9.3, Corrected Calcium , Total Bilirubin 0.5, Aspartate Amino Transf (AST/SGOT) 17, Alanine Aminotransferase (ALT/SGPT) 22, Alkaline Phosphatase 146H, Total Protein 8.6H, Albumin 4.7H, Lipase 9, Serum Test, Qualitative NEGATIVE Radiology CT abdomen pelvis (02/23) impression: 1. Thickened, stone containing, mildly distended gallbladder is suspicious for cholecystitis without radiodense choledocholithiasis or bile duct dilatation. 2. No other acute-appearing abnormality found. CXR (02/23) Impression: No acute appearing abnormality. Assessment/Plan Assessment/Plan Assessment/Plan Cholecystitis with stone Abdominal/Epigastric pain History of HTN Plan: Laprascopic cholecystectomy NAHOMI CAMPBELL DO 02/23/23 1337: History of Present Illness History of Present Illness Time Seen by Provider: 12:52 History of Present Illness Surgery asked to consult regarding RUQ pain and Cholelithiasis. HPI per ED: Patient is a 37-year-old female presents ED with epigastric abdominal pain. Pain is described as sharp radiates to her back. Rates pain 10 out of 10. Pain started this past Monday she was seen in the ER. There was concern for gallbladder disease versus ulcer versus GERD. She increase her omeprazole and has been taking Carafate. She was seen at [place] ER for similar type pain as the pain has been constant worse with eating. She has been vomiting since last night. She denies any chest pain or shortness of breath. She states the pain is not getting any better with oral hydrocodone. It was recommended come to ED by her primary care physician for further evaluation. Patient did have a positive result on her CT abdomen pelvis with thickening of the gallbladder but did not note any pericholecystic fluid but did note some mild Thickening, stone containing. No evidence of choledocholithiasis. She had reassuring lab work. Patient denies chest pain, shortness of breath, headache, dizziness, visual changes, vomiting, diarrhea. When I saw pt she was sitting up on the ER ildefonsoarmani ceeithing and moaning in pain. States she has to get something done for the pain. She was up at [facility] ER and then drove down to [place] ER. She has never had pain this bad before. Allergies and Home Medications Allergies Coded Allergies: lisinopril (Verified Allergy, Unknown, 06/14/21) cough Patient Home Medication List Home Medication List Reviewed: Yes Hydrocodone/Acetaminophen (Hydrocodone-Acetamin 5-325 mg) 5 Mg-325 Mg Tablet, 1 TAB PO Q4H PRN for PAIN SEVERE Prescribed by: DONNA PAREDES on 02/23/23 0551 Ondansetron (Ondansetron Odt) 4 Mg Tab.rapdis, 4 MG PO Q6H PRN for NAUSEA/VOMITING Prescribed by: DONNA PAREDES on 02/23/23 0549 Sucralfate (Carafate) 1 Gram Tablet, 1 GM PO ACHS Prescribed by: ROBERTO CARLOS MALDONADO MD on 02/18/234 Past Dxcatom-Gdintq-Xsjssv Hx Patient Social History Smoking Status: Current Everyday Smoker Alcohol Use?: Yes (one drink a year.) Surgeries History of Surgeries: Yes Surgeries: Section (2013 in [facility]) Respiratory History of Respiratory Disorde: No Cardiovascular History of Cardiac Disorders: Yes Cardiac Disorders: Hypertension Neurological History of Neurological Disord: No Reproductive System : No Gastrointestinal History of Gastrointestinal Di: Yes Gastrointestinal Disorders: Gastroesophageal Reflux, Gall Bladder Disease Musculoskeletal History of Musculoskeletal Dis: No Endocrine History of Endocrine Disorders: No HEENT History of HEENT Disorders: No Cancer History of Cancer: No Psychosocial History of Psychiatric Problem: No Integumentary History of Skin or Integumenta: No Blood Transfusions History of Blood Disorders: No Family Medical History Significant Family History: Cancer (grandfather had lung cancer ), Diabetes (both mother and father ), Hypertension (both mother and father), Renal Disease (grandmother had renal failure) Review of Systems-General Constitutional: chills; No fever, No malaise EENTM: No hearing loss, No ear pain, No blurred vision, No double vision, No mouth swelling, No epistaxis Respiratory: No cough; short of breath (due to pain with deep breathing) Cardiovascular: chest pain, palpitations Gastrointestinal: abdominal pain (in epigastric region ); No constipation; di arrhea; No dysphagia Genitourinary: No dysuria, No frequency, No hematuria Musculoskeletal: No back pain, No joint pain Skin: No change in color, No change in hair/nails Psychiatric/Neurological: Denies Anxiety, Denies Depressed, Denies Numbness, Denies Tingling Physical Exam-General Problems Physical Exam General Appearance: severe distress (secondary to pain) Eyes: Bilateral Eye PERRL, Bilateral Eye EOMI HEENT: pharynx normal; No scleral icterus (R), No scleral icterus (L) Neck: non-tender, supple Respiratory: lungs clear, normal breath sounds, no respiratory distress Cardiovascular: regular rate, rhythm, no murmur Gastrointestinal: normal bowel sounds, soft, guarding (voluntary), tenderness (tenderness in RUQ), hernia (umbilical) Rectal: deferred Back: no CVA tenderness, no vertebral tenderness Extremities: no pedal edema, normal capillary refill Neurologic/Psychiatric: alert, oriented x 3 Skin: normal color, warm/dry Lymphatic: no adenopathy (neck, axilla or groin) Assessment/Plan Assessment/Plan Assessment/Plan Acute Cholecystitis with Cholelithiasis HTN Pt is in severe pain and has elevated WBC. I reviewed the CT images myself and spoke with the ED provider. I think she has acute cholecystitis and would benefit from gallbladder removal. I did tell pt there is always a chance this is not causing her pain. She stated "we have to do something about it". I went over the procedure risks and complications not limited to pain, bleeding, infection, scar, damage to bowel or bile duct and need for further procedure. All questions answered to her satisfaction and will take her to the OR today. Will get consent for Laparoscopic Cholecystectomy with possible cholangiogram, possible open and all other indicated procedures. I also had them give her more IV pain meds in the ER to try and reduce her pain. Supervisory-Addendum Brief Verification & Attestation Participated in pt care: history, MDM, physical Personally performed: exam, history, MDM, supervision of care Care discussed with: Medical Student Procedures: n/a Verification and Attestation of Medical Student E/M Service A medical student performed and documented this service. I then reviewed and verified all information documented by the medical student and made modifications to such information, when appropriate. I personally performed a physical exam, medical decision making and then discussed any differences between the notes and made revisions as necessary to create one note. Nahomi Campbell , 02/23/23 , 13:41 RYLIE GOLDSTEIN Feb 23, 2023 12:52 NAHOMI CAMPBELL DO Feb 23, 2023 13:37
[2023-02-23] MEDS ORDERED: LIDOCAINE/EPI 1%-1:200,000 (XYLOCAINE) 30 ML VIAL ONE (13:23)
[2023-02-23] MEDS ORDERED: LIDOCAINE PF 2% 5 ML VIAL ONE (13:56)
[2023-02-23] MEDS ORDERED: ROCURONIUM 50 MG/5 ML VIAL IV ONE (13:56)
[2023-02-23] MEDS ORDERED: proPOfol INJECTION 200 MG/20 ML VIAL IV ONE ×2 (13:56→15:22)
[2023-02-23] MEDS ORDERED: ONDANSETRON INJECTION 4 MG/2 ML (SDV) ONE (13:56)
[2023-02-23] MEDS ORDERED: fentaNYL INJECTION 100 MCG/2 ML VIAL ONE ×2 (13:56→14:10)
[2023-02-23] MEDS ORDERED: SUCCINYLCHOLINE INJ 20 MG/1 ML 10 ML VIAL ONE (13:56)
[2023-02-23] MEDS ORDERED: dexAMETHasone INJ 10 MG/ML 1 ML VIAL ONE (13:56)
[2023-02-23] MEDS ORDERED: MIDAZOLAM INJ 2 MG/2 ML VIAL ONE (13:56)
[2023-02-23] MEDS ORDERED: CLN.1T PO (14:05)
[2023-02-23] MEDS ORDERED: SERT-412 PO (14:05)
[2023-02-23] MEDS ORDERED: METO200T48 PO (14:05)
[2023-02-23] MEDS: LACTATED RINGERS 1,000 ML 1,000 ML IV PRN ×2 (14:13→16:08)
[2023-02-23] MEDS ORDERED: ceFAZolin INJECTION 2,000 MG in NS (IVPB) 50 ML 50 ML IV ONE (15:00)
[2023-02-23] MEDS ORDERED: ceFAZolin INJECTION 2,000 MG ONE (15:04)
[2023-02-23] MEDS ORDERED: NS (IVPB) 50 ML 50 ML ONE (15:05)
[2023-02-23] MEDS ORDERED: LIDOCAINE/EPI 1%-1:200,000 (XYLOCAINE) 30 ML VIAL INJ ONE (15:35)
[2023-02-23] MEDS ORDERED: IOHEXOL 300 MG/ML 30 ML (OMNIPAQUE 300) VIAL INJ ONE (15:36)
[2023-02-23] MEDS ORDERED: SEVOFLURANE (ULTANE) 15 ML INHAL SOLN ONE (16:24)
[2023-02-23] MEDS ORDERED: SUGAMMADEX INJ 100 MG/ML 5 ML VIAL IV ONE (16:25)
--- NOTE | 2023-02-23 16:28 | Progress Note-Post Operative ---
Post-Operative Progess Note Surgeon (s)/White Hat Hacker (s) Surgeon NAHOMI CAMPBELL DO [employer] Hacker: [place] Pre-Operative Diagnosis Acute Cholecystitis with Cholelithiasis Post-Operative Diagnosis Same plus Hydrops Procedure & Operative Findings Date of Procedure 02/23/23 Procedure Performed/Findings PROCEDURE: Laparoscopic cholecystectomy with intraoperative cholangiogram. COMPLICATIONS: None. PROCEDURE: The patient was taken to the operating suite and was prepped and draped in sterile fashion. A surgical pause was performed. Just superior to the umbilicus, a 12 mm incision was made. Dissection was taken down to the fascia, which was then scored and grasped with a Ej and the abdomen was then entered. An 0 Vicryl suture was placed in a [id number]-[id number]-ooxzo fashion and a Guevara trocar was placed and secured. Pneumoperitoneum was achieved. A 5mm trochar place in the subxyphoid and 2 in the right upper quadrant. The gallbladder was seen and noted to be very erythematous, distended and there were adhesions; this is an acute cholecystitis. Then grasped at the fundus, elevated superiorly and took down the adhesions with blunt dissection and bovie. It was so inflamed and distended that I was unable to get a good grasp and opened the gallbladder to drain it. Immediately got out clear fluid; this is Hydrops. Found a lot of edema around the gallbladder. Able to grasp Evans's pouch and pull it in the infero-lateral direction. The cystic duct and cystic artery were then dissected out. Clip was placed on the distal portion of the cystic duct which was then partially transected. An arrow catheter was inserted into the duct and the cholangiogram was then performed. No filling defects and contrast made its way up into right and left hepatics and down into the duodenum. Catheter was removed, clips were placed on proximal portion of the cystic duct and then the duct was then transected. Clips were placed along the proximal and distal portion of the cystic artery which was then transected. Hook cautery was used to dissect the gallbladder from the gallbladder fossa achieving hemostasis. The gallbladder was placed in an Endobag and removed through the 12 mm trocar site. The abdomen was then reinspected. Copious amounts of irrigation were used to irrigate the abdomen and there were no signs of active bleeding. Hemostasis had been achieved. The 12 mm fascial defect was then closed with 0 Vicryl suture that had been placed in a [id number] fashion. The abdomen was then desufflated, the trocars were removed. The abdomen was then washed and dried. The skin was then closed using 4-0 Monocryl in a subcuticular fashion. The abdomen was washed and dried and Skin Affix was place over incisions. Patient tolerated the procedure well without any complications and was taken to the recovery room in stable condition. Dr. Meyers assisted on this case helping to make incisions, close incisions, identify anatomy and hold anatomy out of the way. Anesthesia Type GET Estimated Blood Loss Estimated blood loss (mL): scant Specimens/Packing Specimens Removed GB and contents NAHOMI CAMPBELL DO Feb 23, 2023 16:28
[2023-02-23] MEDS ORDERED: ACHD5005 PO (16:30)
--- NOTE | 2023-02-23 16:32 | Discharge Inst-Surgical ---
Discharge Inst-Surgical Depart Medication/Instructions New, Converted or Re-Newed RX: Transmitted to Pharmacy Patient Instructions Follow up Appt: Make appointment for 1 week. [phone] Instructions: No lifting greater than 20 pounds. No strenuous activity. May shower in 24 hours, no tub bath or soaking. Use incentive spirometer at home as directed. No Smoking Skin/Wound Care: May remove bandages in am. You need to leave the Dermabond on incision it will fall off on it's own. Symptoms to Report: Appetite Changes, Extremity Discoloration, Numbness/Tingling, Swelling Increased, Bleeding Excessive, Eyesight Changes, Pain Increased, Urine Color Change, Constipation(Persistent), Fever over 101 degree F, Pain/Pressure in chest, Urinating Difficulty, Cough Up/Vomit Blood, Heart Beat Irreg/Pounding, Pain/Pressure in jaw, Cramps in feet or legs, Lightheadedness, Pain/Pressure in shoulder, Diarrhea(Persistent), Memory Changes Suddenly, Questions/Concerns, Weight gain consecutive days, Dizziness/Fainting, Nausea/Vomiting, Shortness of Breath, Weight gain over 2 pounds If questions or concerns contact your physician Or seek help at emergency department. Activity Activity as Tolerated: Yes Activity Instructions: Avoid Pulling & Pushing, Avoid Stress to Incision Driving Instructions: No Driving/Refer to Diet Discharge Diet: Avoid Fatty Foods, Low Fat/Low Cholesterol Diet After 24 Hours: Clear Liquid if Nauseous If Any Problems/Questions/Issu: Contact Your Physician, Go to Emergency Room Skin/Wound Care Infection Signs and Symptoms: Increased Redness, Foul Odor of Wound, Increased Drainage, Skin Itchy or Has a Rash, Increased Swelling, Temperature Above 101 F Wound Care Comment: heating pad to shoulder or neck tonight for pain Bathing Instructions: Shower Stitches/[place]/Dermabond Dis: Dermabond NAHOMI CAMPBELL DO Feb 23, 2023 16:32
[2023-02-23] MEDS ORDERED: KETOROLAC INJ 30 MG/ML VIAL ONE (16:35)
--- NOTE | 2023-02-23 18:57 | Diagnostic Imaging Report ---
INDICATION: Cholecystectomy. Operative cholangiogram performed in the routine fashion with the portable intensifier in surgery. 58 views were obtained, 12.1 seconds of fluoroscopy time was used. 1.60 rads of exposure. FINDINGS: Contrast was injected into the cystic duct stump. Contrast fills the biliary tree. Contrast passes into the duodenum without obstruction. IMPRESSION: Unremarkable operative cholangiogram. Dictated by: Dictated on workstation # [id number]
== END 2023-02-23 18:46 | disposition home or self-care (01) ==
LOC: EDUNIT# 11:02 → ER 11:03 → SDC 12:52
PROVIDERS: ATTEND Surgery
DX: K80.12 Calculus of gallbladder with acute and chronic cholecystitis without obstruction (principal); K82.1 Hydrops of gallbladder; K82.8 Other specified diseases of gallbladder; I10 Essential (primary) hypertension; F17.210 Nicotine dependence, cigarettes, uncomplicated
CPT/HCPCS: 36415; 76000; 80053; 83690; 84703; 85007; 85027; 87081